=== PATIENT | male | born 1970 | race Two or more races ===

== ENCOUNTER → 2016-12-04 | Outpatient (CLI) | payer OTHER ==
[2013-01-20 14:32] VITALS: BP 116/61
--- NOTE | 2016-12-04 15:50 | RAD ---
Right foot, three views Indication: Dorsal forefoot contusion near 2nd and 3rd toes. Comparison: None Findings: No acute fracture or subluxation is identified. There are very mild degenerative changes o f the 1st MTP joint. Remaining joint spaces appear well maintained in anatomic position. There is mi nimal soft tissue swelling overlying the dorsal forefoot. No additional gross soft tissue abnormalit y is seen. Impression: Very mild soft tissue swelling overlying the dorsal forefoot without acute osseous abnormality. Reported By:
== END | disposition home or self-care (01) ==
LOC: RAD 15:19
PROVIDERS: ATTEND Obstetrics & Gynecology Obstetrics
DX: S90.31XA Contusion of right foot, initial encounter (principal); X58.XXXA Exposure to other specified factors, initial encounter; R60.1 Generalized edema
CPT/HCPCS: 73630